=== PATIENT | female | born 1965 | race Caucasian/White ===

== ENCOUNTER 2017-01-29 11:16 | Emergency (ER) | payer SELFPAY ==
[~2017-01-29] VITALS: Ht 162.6 cm; Wt 80.4 kg
[2017-01-29 12:16] LABS: BASOPHILS % 0.9 % (0.0-2.0); EOSINOPHILS % 5.7 % (0.0-5.0); HEMATOCRIT. 40.8 % (36.0-48.0); HEMOGLOBIN. 13.7 g/dL (12.0-16.0); LYMPHOCYTES % 20.1 % (20.0-50.0); MEAN CORPUSCULAR HEMOGLOBIN 28.6 pg (28.0-32.0); MEAN PLATELET VOLUME 8.1 fl (7.4-10.4); MONOCYTES % 7.1 % (2.0-8.0); NEUTROPHILS % 66.2 % (40.0-76.0); PLATELET 331 x1000/uL (130-400); RED CELL DISTRIBUTION WIDTH 13.5 % (11.6-14.6)
[2017-01-29] MEDS ORDERED: SODIUM CHLORIDE 0.9% 1,000 ML IV ONE (12:16)
[2017-01-29 12:20] LABS: PROTHROMBIN TIME 10.4 sec (9.4-11.6)
[2017-01-29 12:26] LABS: CARBON DIOXIDE 27 mEq/L (21-32); CHLORIDE 105 mEq/L (98-107); TROPONIN I < 0.02 ng/mL (0.00-0.04)
[2017-01-29] MEDS ORDERED: KETOROLAC 30MG/ML VIAL IV ONE (12:30)
[2017-01-29] MEDS ORDERED: ONDANSETRON HCL 4MG/2ML VIAL IV ONE (12:30)
[2017-01-29] MEDS ORDERED: MECLIZINE 25MG TABLET PO ONE (12:30)
[2017-01-29 13:20] LABS: HCG SCREEN NEGATIVE
[2017-01-29 15:05] VITALS: BP 129/72
== END 2017-01-29 15:07 | disposition home or self-care (01) ==
LOC: EDBD 13:14 → ER 13:14 → CANBEDREQ 15:29
DX: H81.10 Benign paroxysmal vertigo, unspecified ear (principal); H55.00 Unspecified nystagmus
CPT/HCPCS: 36415; 71010; 80053; 83880; 84484; 84703; 85025; 85610; 93005; 96361; 96374; 96375; 99285; J1885; J2405; J7030; J8597

== ENCOUNTER 2018-04-20 10:43 | Emergency (ER) | payer SELFPAY ==
[~2018-04-20] VITALS: Ht 167.6 cm; Wt 78.0 kg
[2018-04-20 13:15] LABS: BASOPHILS % 0.9 % (0.0-2.0); HEMATOCRIT. 41.2 % (36.0-48.0); HEMOGLOBIN. 13.9 g/dL (12.0-16.0); LYMPHOCYTES % 23.5 % (20.0-50.0); MEAN CORPUSCULAR HEMOGLOBIN 29.8 pg (28.0-32.0); MEAN CORPUSCULAR VOLUME 88.4 fL (81.0-99.0); MEAN PLATELET VOLUME 8.2 fl (7.4-10.4); MONOCYTES % 10.4 % (2.0-8.0); NEUTROPHILS % 62.2 % (40.0-76.0); PLATELET 308 x1000/uL (130-400); RED BLOOD CELL COUNT 4.66 mill/uL (4.2-5.4); RED CELL DISTRIBUTION WIDTH 12.7 % (11.6-14.6)
[2018-04-20 13:21] LABS: CHLORIDE 107 mEq/L (98-107)
[2018-04-20 13:24] LABS: PROTHROMBIN TIME 10.2 sec (9.1-11.1)
[2018-04-20 14:25] VITALS: BP 120/91
== END 2018-04-20 14:26 | disposition home or self-care (01) ==
LOC: ER 11:30
DX: M25.572 Pain in left ankle and joints of left foot (principal); Z98.890 Other specified postprocedural states
CPT/HCPCS: 36415; 73610; 81025; 93970; 99284

== ENCOUNTER 2020-12-01 09:05 | Emergency (ER) | payer MEDICAID ==
[~2020-12-01] VITALS: Ht 160 cm; Wt 76.0 kg
[2020-12-01] MEDS ORDERED: ACYC200C PO (10:30)
[2020-12-01 10:55] VITALS: BP 123/71
== END 2020-12-01 10:57 | disposition home or self-care (01) ==
LOC: ER 09:05
DX: B01.89 Other varicella complications (principal); G62.9 Polyneuropathy, unspecified; Z98.890 Other specified postprocedural states
CPT/HCPCS: 99283